=== PATIENT | male | born 1980 | race Caucasian/White ===

== ENCOUNTER 2019-12-02 09:58 | Inpatient (IN) | payer MEDICAID ==
[~2019-12-02] VITALS: Ht 172.7 cm; Wt 92.7 kg
[~2019-12-02 09:58] MED LIST: NOCURR
[2019-12-02] MEDS ORDERED: ONDANSETRON HCL 4 MG/2 ML VIAL IVP ONE ×2 (10:15→12:00)
[2019-12-02] MEDS ORDERED: SODIUM CHLORIDE 0.9% 1,000 ML IV ONE ×2 (10:15→12:30)
[2019-12-02] MEDS ORDERED: MORPHINE SULFATE 10 MG/ML SYRINGE IVP ONE (10:30)
[2019-12-02 10:31] LABS: BASOPHILS % (AUTO) 0.3 % (0.0-2.0); EOSINOPHILS % (AUTO) 0.4 % (1.0-6.0); HEMATOCRIT 51.1 % (41-53); HEMOGLOBIN 16.6 g/dL (13.5-17.5); LYMPHOCYTES # (AUTO) 0.9 K/uL (1.0-4.8); LYMPHOCYTES % (AUTO) 6.7 % (22.0-44.0); MEAN CORPUSCULAR HGB CONC 32.6 G/dL (31.0-37.0); MEAN CORPUSCULAR VOLUME 89 fL (80-100); MONOCYTES # (AUTO) 0.9 K/uL (0.1-1.0); MONOCYTES % (AUTO) 6.9 % (2.0-9.0); NEUTROPHILS # (AUTO) 11.5 K/uL (1.8-7.7); PLATELET COUNT (AUTO) 289 K/uL (150-450); RED BLOOD CELL COUNT(AUTO) 5.73 MIL/uL (4.50-5.90); RED CELL DISTRIBUTION WIDTH 13.8 % (11.5-14.5)
[2019-12-02 10:36] LABS: NEUTROPHILS % (AUTO) 85.7 % (40.0-70.0)
[2019-12-02 10:46] LABS: ANION GAP 10 mmol/L (8-16); CALCIUM, TOTAL 9.1 mg/dL (8.8-10.5); CARBON DIOXIDE 26 mmol/L (22-29); CHLORIDE 98 mmol/L (98-107); CREATININE 0.96 mg/dL (0.60-1.30); GLOMERULAR FILTR. RATE CALC > 60 mL/min (>60); GLUCOSE,RANDOM 120 mg/dL (70-110); SODIUM SERUM 134 mmol/L (136-145); UREA NITROGEN, BLOOD 13 mg/dL (7-18)
[2019-12-02] MEDS ORDERED: IOVERSOL 320 MG/ML 100 ML VIAL ONE (10:47)
[2019-12-02] MEDS ORDERED: SODIUM CHLORIDE 0.9% 100 ML ONE (10:47)
[2019-12-02 10:52] LABS: ALANINE AMINOTRANSFERASE 30 U/L (12-78); ALBUMIN 4.3 g/dL (3.4-5.0); ALKALINE PHOSPHATASE 72 U/L (46-116); ASPARTATE AMINOTRANSFERASE 19 U/L (15-37); BILIRUBIN,TOTAL 0.8 mg/dL (0.1-1.0); LIPASE 56 U/L (73-393); TOTAL PROTEIN, SERUM 8.7 g/dL (6.4-8.2)
[2019-12-02 10:53] LABS: APPEARANCE,URINE CLEAR (CLEAR); GLUCOSE, URINE (UA) NEGATIVE (NEGATIVE); KETONES,URINE >=80 mg/dL (NEGATIVE); LEUKOCYTE ESTERASE ,URINE TRACE (NEGATIVE); NITRATE,URINE NEGATIVE (NEGATIVE); OCCULT BLOOD,URINE NEGATIVE (NEGATIVE); PH,URINE 5.5 (5.0-8.0); PROTEIN,URINE TRACE (NEGATIVE)
[2019-12-02 11:10] LABS: BACTERIA,URINE None Seen /HPF (None Seen); BILIRUBIN,URINE PRELIM. POSITIVE (NEGATIVE); RBC,URINE None Seen /HPF (0-2); WBC,URINE 0-2 /HPF (0-5)
[2019-12-02] MEDS ORDERED: PROPOFOL 1% 20 ML VIAL IVP ONE (12:00)
[2019-12-02] MEDS ORDERED: LIDOCAINE/PF 2% 5 ML SYRINGE IVP ONE (12:00)
[2019-12-02] MEDS ORDERED: FentaNYL CITRATE-PF 100 MCG/2 ML VIAL IVP ONE (12:00)
[2019-12-02] MEDS ORDERED: KETOROLAC TROMETHAMINE 60 MG/2 ML VIAL IM ONE (12:00)
[2019-12-02] MEDS ORDERED: SUCCINYLCHOLINE CHLORIDE 20 MG/ML 10 ML VIAL IVP ONE (12:00)
[2019-12-02] MEDS ORDERED: ROCURONIUM BROMIDE 10 MG/ML 5 ML VIAL IVP ONE (12:00)
[2019-12-02] MEDS ORDERED: DEXAMETHASONE SOD PHOS 4 MG/ML VIAL IVP ONE (12:00)
[2019-12-02] MEDS ORDERED: METOCLOPRAMIDE HCL 5 MG/ML 2 ML VIAL IVP ONE (12:00)
[2019-12-02] MEDS ORDERED: MIDAZOLAM HCL 2 MG/2 ML VIAL IVP ONE (12:00)
[2019-12-02] MEDS ORDERED: MORPHINE SULFATE 4 MG/ML SYRINGE IVP ONE (13:00)
[2019-12-02] MEDS ORDERED: MORPHINE SULFATE 2 MG/ML SYRINGE IVP PRN ×2 (13:00→13:15)
[2019-12-02] MEDS ORDERED: ACETAMINOPHEN 325 MG TABLET PO PRN (13:15)
[2019-12-02] MEDS ORDERED: PANTOPRAZOLE SODIUM 40 MG/VIAL IVP SCH (13:15)
[2019-12-02] MEDS ORDERED: MAGNESIUM HYDROXIDE SUSPENSION 30 ML UDCUP PO PRN (13:15)
[2019-12-02] MEDS: SODIUM CHLORIDE 0.9% 1,000 ML IV SCH (13:38)
[2019-12-02] MEDS: PIPERACILLIN/TAZO 3.375 GM/D5W 50 ML IV SCH ×2 (13:42→19:16)
[2019-12-02] MEDS ORDERED: FentaNYL CITRATE-PF 100 MCG/2 ML VIAL IVP PRN (19:00)
[2019-12-02] MEDS ORDERED: MEPERIDINE-PF 25 MG/ML VIAL IVP PRN (19:00)
[2019-12-02] MEDS ORDERED: HYDROmorphone 2 MG/ML SYRINGE IVP PRN ×2 (19:00→21:00)
[2019-12-02] MEDS ORDERED: SODIUM CL IRRIG SOLN BAG 3,000 ML IRRIG ONE (19:10)
[2019-12-02] MEDS ORDERED: BUPIVACAINE 0.25%/EPI 1:200,000/PF 10 ML VIAL ONE (19:10)
[2019-12-02] MEDS ORDERED: MetroNIDAZOLE 500 MG/NACL 100 ML IV ONE (19:11)
[2019-12-02] MEDS: OXYGEN THERAPY IH SCH (20:00)
[2019-12-02] MEDS ORDERED: RINGERS SOLUTION,LACTATED 1,000 ML IV ONE (20:33)
[2019-12-02] MEDS ORDERED: SUGAMMADEX SODIUM 200 MG/2 ML VIAL IVP ONE (20:39)
[2019-12-02] MEDS ORDERED: HYDROCODONE/ACETAMINOPHEN 5-325 MG TABLET PO PRN (21:00)
[2019-12-02 22:03] VITALS: BP 115/72
[2019-12-02 23:35] VITALS: BP 102/64
[2019-12-03] MEDS: DOCUSATE SODIUM 100 MG CAPSULE PO SCH ×3 (01:03→20:19)
[2019-12-03] MEDS: PIPERACILLIN/TAZO 3.375 GM/D5W 50 ML IV SCH ×4 (01:03→20:19)
[2019-12-03] MEDS: FAMOTIDINE 20 MG TABLET PO SCH ×3 (01:04→20:19)
[2019-12-03] MEDS: SODIUM CHLORIDE 0.9% 1,000 ML IV SCH ×2 (01:08→17:51)
[2019-12-03 04:05] VITALS: BP 111/72
[2019-12-03] MEDS: MORPHINE SULFATE 2 MG/ML SYRINGE IVP PRN ×3 (06:32→20:48)
[2019-12-03] MEDS: OXYGEN THERAPY IH SCH (08:00)
[2019-12-03] MEDS: IBUPROFEN 200 MG TABLET PO SCH ×3 (08:24→19:22)
[2019-12-03 08:38] VITALS: BP 112/73
[2019-12-03 10:39] LABS: EOSINOPHILS % (AUTO) 0 % (1.0-6.0); HEMATOCRIT 43.7 % (41-53); HEMOGLOBIN 14.1 g/dL (13.5-17.5); LYMPHOCYTES # (AUTO) 0.8 K/uL (1.0-4.8); LYMPHOCYTES % (AUTO) 5.2 % (22.0-44.0); MEAN CORPUSCULAR HEMOGLOBIN 28.8 pg (26.0-34.0); MEAN CORPUSCULAR HGB CONC 32.2 G/dL (31.0-37.0); MEAN CORPUSCULAR VOLUME 89 fL (80-100); MONOCYTES # (AUTO) 0.8 K/uL (0.1-1.0); MONOCYTES % (AUTO) 5.4 % (2.0-9.0); NEUTROPHILS # (AUTO) 12.9 K/uL (1.8-7.7); PLATELET COUNT (AUTO) 272 K/uL (150-450); RED BLOOD CELL COUNT(AUTO) 4.89 MIL/uL (4.50-5.90); RED CELL DISTRIBUTION WIDTH 13.5 % (11.5-14.5)
[2019-12-03 11:01] LABS: ANION GAP 10 mmol/L (8-16); CALCIUM, TOTAL 9.2 mg/dL (8.8-10.5); CARBON DIOXIDE 25 mmol/L (22-29); CHLORIDE 99 mmol/L (98-107); CREATININE 0.91 mg/dL (0.60-1.30); GLOMERULAR FILTR. RATE CALC > 60 mL/min (>60); GLUCOSE,RANDOM 112 mg/dL (70-110); POTASSIUM 3.7 mmol/L (3.5-5.1); SODIUM SERUM 134 mmol/L (136-145); UREA NITROGEN, BLOOD 13 mg/dL (7-18)
[2019-12-03 11:11] VITALS: BP 112/78
[2019-12-03 11:18] LABS: NEUTROPHILS % (AUTO) 89.4 % (40.0-70.0)
[2019-12-03] MEDS: ONDANSETRON HCL 4 MG/2 ML VIAL IVP PRN ×2 (13:17→20:47)
[2019-12-03 19:30] VITALS: BP 132/84
[2019-12-03] MEDS ORDERED: SODIUM CHLORIDE 0.9% 500 ML IV ONE (20:13)
[2019-12-03 23:55] VITALS: BP 113/67
[2019-12-04] MEDS: PIPERACILLIN/TAZO 3.375 GM/D5W 50 ML IV SCH ×4 (01:40→19:01)
[2019-12-04 05:20] VITALS: BP_SYST 111; BP_SYST 128; BP_DIAS 62; BP_DIAS 72
[2019-12-04 07:31] LABS: EOSINOPHILS % (AUTO) 0.1 % (1.0-6.0); HEMATOCRIT 41.4 % (41-53); HEMOGLOBIN 13.4 g/dL (13.5-17.5); LYMPHOCYTES % (AUTO) 8.3 % (22.0-44.0); MEAN CORPUSCULAR HEMOGLOBIN 28.8 pg (26.0-34.0); MEAN CORPUSCULAR HGB CONC 32.4 G/dL (31.0-37.0); MEAN CORPUSCULAR VOLUME 89 fL (80-100); MONOCYTES # (AUTO) 0.8 K/uL (0.1-1.0); NEUTROPHILS % (AUTO) 84.6 % (40.0-70.0); PLATELET COUNT (AUTO) 255 K/uL (150-450); RED BLOOD CELL COUNT(AUTO) 4.66 MIL/uL (4.50-5.90); RED CELL DISTRIBUTION WIDTH 13.5 % (11.5-14.5)
[2019-12-04 07:38] VITALS: BP 113/70
[2019-12-04] MEDS: OXYGEN THERAPY IH SCH ×2 (08:00→20:00)
[2019-12-04 08:02] LABS: ANION GAP 8 mmol/L (8-16); CALCIUM, TOTAL 8.9 mg/dL (8.8-10.5); CARBON DIOXIDE 28 mmol/L (22-29); CHLORIDE 100 mmol/L (98-107); GLOMERULAR FILTR. RATE CALC > 60 mL/min (>60); GLUCOSE,RANDOM 116 mg/dL (70-110); POTASSIUM 3.7 mmol/L (3.5-5.1); SODIUM SERUM 136 mmol/L (136-145); UREA NITROGEN, BLOOD 12 mg/dL (7-18)
[2019-12-04] MEDS: FAMOTIDINE 20 MG TABLET PO SCH ×2 (08:23→20:51)
[2019-12-04] MEDS: IBUPROFEN 200 MG TABLET PO SCH ×3 (08:23→17:03)
[2019-12-04] MEDS: DOCUSATE SODIUM 100 MG CAPSULE PO SCH (08:23)
[2019-12-04] MEDS ORDERED: IBUPROFEN 400 MG TABLET ONE (11:24)
[2019-12-04 11:33] VITALS: BP 117/76
[2019-12-04 16:20] VITALS: BP 132/70
[2019-12-04 20:15] VITALS: BP 116/65
[2019-12-05] VITALS: BP 118/87
[2019-12-05] MEDS: PIPERACILLIN/TAZO 3.375 GM/D5W 50 ML IV SCH ×2 (00:46→06:26)
[2019-12-05 06:00] VITALS: BP 129/73
[2019-12-05 07:17] LABS: BASOPHILS % (AUTO) 0.1 % (0.0-2.0); EOSINOPHILS % (AUTO) 1.6 % (1.0-6.0); HEMATOCRIT 44.2 % (41-53); HEMOGLOBIN 14.5 g/dL (13.5-17.5); LYMPHOCYTES # (AUTO) 1.1 K/uL (1.0-4.8); MEAN CORPUSCULAR HGB CONC 32.7 G/dL (31.0-37.0); MEAN CORPUSCULAR VOLUME 89 fL (80-100); MONOCYTES # (AUTO) 0.7 K/uL (0.1-1.0); MONOCYTES % (AUTO) 6.6 % (2.0-9.0); NEUTROPHILS # (AUTO) 8.4 K/uL (1.8-7.7); NEUTROPHILS % (AUTO) 80.7 % (40.0-70.0); PLATELET COUNT (AUTO) 292 K/uL (150-450); RED CELL DISTRIBUTION WIDTH 13.4 % (11.5-14.5)
[2019-12-05 07:32] LABS: ANION GAP 9 mmol/L (8-16); CALCIUM, TOTAL 9.3 mg/dL (8.8-10.5); CARBON DIOXIDE 26 mmol/L (22-29); CHLORIDE 97 mmol/L (98-107); CREATININE 0.85 mg/dL (0.60-1.30); GLOMERULAR FILTR. RATE CALC > 60 mL/min (>60); GLUCOSE,RANDOM 94 mg/dL (70-110); POTASSIUM 3.3 mmol/L (3.5-5.1); SODIUM SERUM 132 mmol/L (136-145); UREA NITROGEN, BLOOD 12 mg/dL (7-18)
[2019-12-05] MEDS: OXYGEN THERAPY IH SCH (07:56)
[2019-12-05] MEDS: FAMOTIDINE 20 MG TABLET PO SCH (07:56)
[2019-12-05] MEDS: IBUPROFEN 200 MG TABLET PO SCH (07:56)
[2019-12-05] MEDS ORDERED: LEVO-72 PO (11:14)
== END 2019-12-05 12:30 | disposition home or self-care (01) | DRG 233 ==
LOC: EMS 10:00 → 5N 18:50 → 6N 12-03 12:04 → 4E 12-04 14:33
PROVIDERS: ADMIT Internal Medicine; ATTEND Internal Medicine
PROC: 0DTJ4ZZ Resection of Appendix, Percutaneous Endoscopic Approach (ICD-10-PCS; principal; 2019-12-02 20:00)
DX: K35.20 Acute appendicitis with generalized peritonitis, without abscess (principal); R65.10 Systemic inflammatory response syndrome (SIRS) of non-infectious origin without acute organ dysfunction; B96.20 Unspecified Escherichia coli [E. coli] as the cause of diseases classified elsewhere; Z03.818 Encounter for observation for suspected exposure to other biological agents ruled out
CPT/HCPCS: 74177; 87070; 87205; 88304; 93005; C9113; G0378; J0330; J1100; J1885; J2250; J2270; J2405; J2543; J2704; J2765; J3010; J3490; J7030; J7040; J7050; J7120

== ENCOUNTER 2020-07-22 13:50 | Emergency (ER) | payer MEDICAID ==
[~2020-07-22] VITALS: Ht 175.3 cm; Wt 77.3 kg
[~2020-07-22 13:50] MED LIST changes: +LEVO-72 PO; -NOCURR
[2020-07-22 13:59] VITALS: BP 107/66
== END 2020-07-22 14:47 | disposition home or self-care (01) ==
LOC: EMS 13:53
DX: R09.81 Nasal congestion (principal); F17.210 Nicotine dependence, cigarettes, uncomplicated; Z20.828 Contact with and (suspected) exposure to other viral communicable diseases
CPT/HCPCS: 99283; U0003